=== PATIENT | female | born 1980 | race Caucasian/White ===

== ENCOUNTER 2023-02-13 09:39 | Day surgery (SDC) | payer BC, SELFPAY ==
[2023-02-13] VITALS (11 sets, daily range): BP systolic 110–127; BP diastolic 58–80; PULSE 68–97; RESP 12–20; TEMP 36.4–36.7; O2SAT 96–100; BMI 28.8
[2023-02-13] MEDS: SODIUM CHLORIDE 0.9 % (FLUSH) 10 ML SYRINGE IVF (09:55)
[2023-02-13] MEDS: LACTATED RINGERS 1000 ML 1,000 ML 100 ML IV (09:55)
[2023-02-13 09:59] LABS: Ur HCG Qualitative* Negative (Negative)
[2023-02-13] MEDS: OXYMETAZOLINE 0.05% NASAL SPRAY 2 SPRAY NOSTRIL-B (11:56)
[2023-02-13] MEDS: COCAINE HCL 4 % 4 ML SOLUTION NOSTRIL-B (12:12)
[2023-02-13] MEDS: MUPIROCIN 1 GM PACKET 1 APPLIC TOPICAL (12:12)
[2023-02-13] MEDS: OXYMETAZOLINE (AFRIN) SOAK 1 EACH TOPICAL (12:12)
[2023-02-13] MEDS: BUPIVACAINE 0.5 %/EPI 1:200K 30 ML INJECTION (12:12)
--- NOTE | 2023-02-13 12:32 | W.ANESCHARGE ---
Anesthesia Charges Start Date/Time Anesthesia Start Date: 02/13/23 Anesthesia Start Time: 11:53 Stop Date/Time Anesthesia Stop Date: 02/13/23 Anesthesia Stop Time: 12:33
--- NOTE | 2023-02-13 12:39 | W.ANESCHARGE ---
Anesthesia Charges Start Date/Time Anesthesia Start Date: 02/13/23 Anesthesia Start Time: 11:53 Stop Date/Time Anesthesia Stop Date: 02/13/23 Anesthesia Stop Time: 12:33
[2023-02-13] MEDS: fentaNYL 100 MCG/2 ML inj 50 MCG IVP (12:40)
--- NOTE | 2023-02-13 13:03 | SUR.PHASEI ---
patient met discharge criteria per anesthesia
--- NOTE | 2023-02-13 13:13 | P.ENTPROC_ITS ---
Procedure Note Date of procedure: 02/13/23 Procedure: Preoperative diagnosis nasal obstruction inferior turbinate hypertrophy, deviated septum, right middle turbinate hypertrophy Postoperative diagnosis same Procedure limited nasal septoplasty, submucous partial resection inferior tu rbinates, partial resection right middle turbinate. Under general trach anesthesia patient was prepped draped usual fashion the nose injected and decongested. The left area 4 septal deflection was injected. The mucosa overlying this was elevated and on either side by cutting through the septal cartilage with a Pender dissector and then it was resected. A piece was trimmed and returned to intraseptal space. A stab incision was made in the anterior other inferior turbinate a tunnel created with a Carlos dissector. The amada bone was outfractured and a conservative anterior submucous resection performed. The Coblation was used along the inferior 10% for ablation submucosally. This was repeated on the left side in identical fashion. The right middle turbinate was incised along its lateral aspect and then the bone infractured. The turbinate was then crushed with the [place] forceps. Merocel packing coated in Bactroban was placed in middle meatus on each side. The patient procedure well was taken recovery in satisfactory condition. Blood loss less than 20 mL. Surgeon: Familia Crespo MD
== END 2023-02-13 13:46 | disposition home or self-care (01) ==
LOC: OR 09:40
PROVIDERS: Anesthesiology; Visit Provider Otolaryngology
PROC: (CPT 30520; principal; 2023-02-13 11:00)
DX: J34.2 Deviated nasal septum (principal); J34.3 Hypertrophy of nasal turbinates; J34.89 Other specified disorders of nose and nasal sinuses
CPT/HCPCS: 30520; 30140; 30999; 00160; 81025; A9270; J0330; J1100; J2405; J2704; J3010; J3490; J7120